=== PATIENT | female | born 1960 | race Caucasian/White ===

== ENCOUNTER 2022-05-10 16:31 | Emergency (ER) | payer BC ==
[2022-05-10 18:12] LABS: BUN/CREATININE RATIO 13 (0-10)
[2022-05-10 18:22] LABS: RED BLOOD COUNT 2.67 M/UL (4.00-5.10); WHITE BLOOD COUNT 3.2 K/UL (4.5-11.0)
== END 2022-05-10 21:05 | disposition home or self-care (01) ==
LOC: ER1 16:31
PROVIDERS: Physician Assistant Medical
DX: K08.89 Other specified disorders of teeth and supporting structures (principal); R68.84 Jaw pain; D61.818 Other pancytopenia; E87.6 Hypokalemia; Z85.3 Personal history of malignant neoplasm of breast; I10 Essential (primary) hypertension; E78.5 Hyperlipidemia, unspecified
CPT/HCPCS: 70487; 80053; 85025; 87040; 96374; 96375; 99284; J0295; J1642; J2270; J2405; J7040; Q9967